=== PATIENT | male | born 1960 | race Caucasian/White ===

== ENCOUNTER 2017-03-30 18:28 | Emergency (ER) | payer OTHER ==
[~2017-03-30] VITALS: Ht 177.8 cm; Wt 78.7 kg
[~2017-03-30 18:28] MED LIST: GABA300C10 PO; LEVO100T PO; METF500T4 PO; ROPI0.25 PO; TAMS-11 PO; TRAM-47 PO; TRAN4TAB11 PO
[2017-03-30] MEDS ORDERED: MORPHINE SULFATE 4 MG/ML, 1ML ONE (19:14)
[2017-03-30] MEDS ORDERED: MORPHINE SULFATE 4 MG/ML, 1ML IV PRN (19:30)
[2017-03-30] MEDS ORDERED: CEFTAROLINE 600 MG in SODIUM CHLORIDE 0.9% 100 ML IV ONE (19:30)
[2017-03-30 21:00] VITALS: BP 188/104
== END 2017-03-30 21:39 | disposition home or self-care (01) ==
LOC: ED 19:23
DX: J34.0 Abscess, furuncle and carbuncle of nose (principal); I10 Essential (primary) hypertension; E11.9 Type 2 diabetes mellitus without complications
CPT/HCPCS: 96365; 96366; 96375; 99285; J0712

== ENCOUNTER 2017-06-05 09:25 | Emergency (ER) | payer OTHER ==
[~2017-06-05] VITALS: Ht 177.8 cm; Wt 77.6 kg
[2017-06-05 09:32] VITALS: BP 161/94
== END 2017-06-05 11:36 | disposition home or self-care (01) ==
LOC: ED 11:30
DX: S16.1XXA Strain of muscle, fascia and tendon at neck level, initial encounter (principal); G89.11 Acute pain due to trauma; M54.6 Pain in thoracic spine; E03.9 Hypothyroidism, unspecified; E11.9 Type 2 diabetes mellitus without complications; E78.5 Hyperlipidemia, unspecified; I10 Essential (primary) hypertension; V89.2XXA Person injured in unspecified motor-vehicle accident, traffic, initial encounter; Y93.89 Activity, other specified; Y99.8 Other external cause status; Y92.488 Other paved roadways as the place of occurrence of the external cause
CPT/HCPCS: 72072; 72125; 99284

== ENCOUNTER 2018-04-12 18:53 | Emergency (ER) | payer OTHER ==
[~2018-04-12] VITALS: Ht 175.3 cm; Wt 77.5 kg
[~2018-04-12 18:53] MED LIST changes: +METF500T17 PO; -METF500T4 PO
[2018-04-12 18:56] VITALS: BP 186/103
[2018-04-12] MEDS ORDERED: VENL25TA PO (19:02)
[2018-04-12] MEDS ORDERED: AMLO10TA6 PO (19:02)
== END 2018-04-12 19:29 | disposition home or self-care (01) ==
LOC: ED 19:20
DX: S13.9XXA Sprain of joints and ligaments of unspecified parts of neck, initial encounter (principal); E11.9 Type 2 diabetes mellitus without complications; I10 Essential (primary) hypertension; E78.5 Hyperlipidemia, unspecified; E03.9 Hypothyroidism, unspecified; V49.49XA Driver injured in collision with other motor vehicles in traffic accident, initial encounter; Y93.89 Activity, other specified; Y92.89 Other specified places as the place of occurrence of the external cause; Y99.8 Other external cause status
CPT/HCPCS: 93005; 99283

== ENCOUNTER → 2018-05-18 | Outpatient (CLI) | payer OTHER ==
[~2018-05-18] MED LIST changes: +AMLO10TA6 PO; +VENL25TA PO
[2018-05-18 10:32] LABS: MEAN CORPUSCULAR HEMOGLOBIN 27.8 pg (27.5-34.5); MEAN CORPUSCULAR HGB CONC 33.3 g/dL (33.2-36.2); MEAN CORPUSCULAR VOLUME 83.6 fL (81-97); MEAN PLATELET VOLUME 6.3 fL (7.4-10.4); PLATELET COUNT 336 x10^3/uL (130-400); RED BLOOD COUNT 4.87 x10^6/uL (4.38-5.82)
[2018-05-18 10:33] LABS: ALANINE AMINOTRANSFERASE 32 U/L (12-78); ALBUMIN 4.1 g/dL (3.4-5.0); ANION GAP 9 mmol/L (5-15); CALCIUM 10.2 mg/dL (8.5-10.1); CHLORIDE 102 mmol/L (98-107); CREATININE 1.13 mg/dL (0.7-1.3)
[2018-05-18 10:44] LABS: ALKALINE PHOSPHATASE 105 U/L (45-117); BILIRUBIN,TOTAL 0.3 mg/dL (0.2-1.0); CHOL/HDL RATIO 5.8; CHOLESTEROL, TOTAL 228 mg/dL (140-239); HDL CHOL % 17 % (26-37); HDL CHOLESTEROL (DIRECT) 39 mg/dL (40-60); TOTAL PROTEIN 8.4 g/dL (6.4-8.2); TRIGLYCERIDES 425 mg/dL (50-200)
[2018-05-18 10:48] LABS: HEMOGLOBIN A1C 7.8 % (4.2-6.3)
== END | disposition home or self-care (01) ==
LOC: LAB 09:58
PROVIDERS: ATTEND Internal Medicine
DX: Z12.5 Encounter for screening for malignant neoplasm of prostate (principal); Z13.89 Encounter for screening for other disorder; E11.69 Type 2 diabetes mellitus with other specified complication; E03.9 Hypothyroidism, unspecified; E78.2 Mixed hyperlipidemia; G47.30 Sleep apnea, unspecified; G60.9 Hereditary and idiopathic neuropathy, unspecified; N13.9 Obstructive and reflux uropathy, unspecified; R80.0 Isolated proteinuria
CPT/HCPCS: 36415; 80053; 80061; 82043; 82570; 83036; 84153; 84402; 84403; 84443; 85027

== ENCOUNTER → 2018-11-23 | Outpatient (CLI) | payer OTHER ==
[~2018-11-23] MED LIST changes: -AMLO10TA6 PO; +AMLO10TA8 PO
[2018-11-23 08:58] LABS: MEAN CORPUSCULAR HEMOGLOBIN 26.1 pg (27.5-34.5); MEAN CORPUSCULAR HGB CONC 31.3 g/dL (33.2-36.2); MEAN CORPUSCULAR VOLUME 83.4 fL (81-97); PLATELET COUNT 350 x10^3/uL (130-400); RED BLOOD COUNT 4.91 x10^6/uL (4.38-5.82); RED CELL DISTRIBUTION WIDTH 14.9 % (9.4-14.8)
[2018-11-23 09:10] LABS: ALANINE AMINOTRANSFERASE 30 U/L (12-78); ANION GAP 6 mmol/L (5-15); CALCIUM 10.8 mg/dL (8.5-10.1); CHLORIDE 108 mmol/L (98-107); CREATININE 1.23 mg/dL (0.7-1.3)
[2018-11-23 09:21] LABS: ALKALINE PHOSPHATASE 105 U/L (45-117); BILIRUBIN,TOTAL 0.3 mg/dL (0.2-1.0); CHOL/HDL RATIO 5.3; CHOLESTEROL, TOTAL 207 mg/dL (140-239); HDL CHOL % 19 % (26-37); HDL CHOLESTEROL (DIRECT) 39 mg/dL (40-60); LDL CHOLESTEROL,CALCULATED 109 mg/dL (54-169); LDL/HDL RATIO 2.8 (0.5-3.0); TOTAL PROTEIN 7.7 g/dL (6.4-8.2); TRIGLYCERIDES 296 mg/dL (50-200); VLDL CHOLESTEROL 59 mg/dL (0-25)
== END | disposition home or self-care (01) ==
LOC: LAB 08:41
PROVIDERS: ATTEND Internal Medicine
DX: I10 Essential (primary) hypertension (principal); E03.9 Hypothyroidism, unspecified; E11.69 Type 2 diabetes mellitus with other specified complication; E11.9 Type 2 diabetes mellitus without complications; E29.1 Testicular hypofunction; E78.2 Mixed hyperlipidemia; E83.52 Hypercalcemia; G60.9 Hereditary and idiopathic neuropathy, unspecified
CPT/HCPCS: 36415; 80053; 80061; 82330; 83036; 83970; 84100; 84403; 84443; 85027

== ENCOUNTER → 2019-07-28 | Outpatient (CLI) | payer OTHER ==
[2019-07-28 09:30] LABS: MEAN CORPUSCULAR HEMOGLOBIN 25.6 pg (27.5-34.5); MEAN CORPUSCULAR HGB CONC 32.2 g/dL (33.2-36.2); MEAN CORPUSCULAR VOLUME 79.5 fL (81-97); MEAN PLATELET VOLUME 6.7 fL (7.4-10.4); PLATELET COUNT 330 x10^3/uL (130-400); RED CELL DISTRIBUTION WIDTH 15.5 % (9.4-14.8)
[2019-07-28 09:38] LABS: RED BLOOD COUNT 4.86 x10^6/uL (4.38-5.82)
[2019-07-28 09:42] LABS: ALBUMIN 3.5 g/dL (3.4-5.0); ANION GAP 6 mmol/L (5-15); CALCIUM 10.6 mg/dL (8.5-10.1); CHLORIDE 107 mmol/L (98-107); CHOLESTEROL, TOTAL 151 mg/dL (140-239); TRIGLYCERIDES 261 mg/dL (50-200); VLDL CHOLESTEROL 52 mg/dL (0-25)
[2019-07-28 09:49] LABS: ABSOLUTE RETICS # 0.069 x10^6/uL (0.5-1.5); RETICULOCYTE COUNT % 1.42 % (0.5-1.5)
[2019-07-28 10:08] LABS: % IRON SATURATION 7 % (20-55); ALANINE AMINOTRANSFERASE 20 U/L (12-78); ALKALINE PHOSPHATASE 124 U/L (45-117); BILIRUBIN,TOTAL 0.2 mg/dL (0.2-1.0); CHOL/HDL RATIO 4.4; CREATININE 1.26 mg/dL (0.7-1.3); HDL CHOL % 23 % (26-37); HDL CHOLESTEROL (DIRECT) 34 mg/dL (40-60); IRON LEVEL 25 mcg/dL (65-175); LDL CHOLESTEROL,CALCULATED 65 mg/dL (54-169); LDL/HDL RATIO 1.9 (0.5-3.0); TOTAL IRON BINDING CAPACITY 360 mcg/dL (250-450)
== END | disposition home or self-care (01) ==
LOC: LAB 09:14
PROVIDERS: ATTEND Internal Medicine
DX: D64.9 Anemia, unspecified (principal); E11.69 Type 2 diabetes mellitus with other specified complication; E03.9 Hypothyroidism, unspecified; E29.1 Testicular hypofunction; G60.9 Hereditary and idiopathic neuropathy, unspecified; I10 Essential (primary) hypertension; N13.9 Obstructive and reflux uropathy, unspecified
CPT/HCPCS: 80053; 80061; 82306; 82607; 82746; 83036; 83540; 83550; 83970; 84100; 84403; 84443; 85027; 85045

== ENCOUNTER 2019-12-09 16:55 | Inpatient (IN) | payer OTHER ==
[~2019-12-09] VITALS: Ht 175.3 cm; Wt 75.4 kg
[2019-12-09] MEDS ORDERED: VANCOMYCIN PER PHARMACY MC ONE (17:30)
[2019-12-09] MEDS ORDERED: SODIUM CHLORIDE FLUSH 10ML SYR IVF ONE (17:30)
[2019-12-09 17:57] LABS: BASOPHILS # (AUTO) 0.06 x10^3/uL (0-0.1); BASOPHILS % (AUTO) 1 % (0-1); EOSINOPHILS # (AUTO) 0.75 x10^3/uL (0-0.4); EOSINOPHILS % (AUTO) 10 % (1-7); LYMPHOCYTES # (AUTO) 1.77 x10^3/uL (1-3.4); LYMPHOCYTES % (AUTO) 24 % (22-44); MD NO; MEAN CORPUSCULAR HEMOGLOBIN 25.1 pg (27.5-34.5); MEAN CORPUSCULAR HGB CONC 32.6 g/dL (33.2-36.2); MEAN PLATELET VOLUME 6.5 fL (7.4-10.4); MONOCYTES # (AUTO) 0.49 x10^3/uL (0.2-0.8); MONOCYTES % (AUTO) 7 % (2-9); NEUTROPHILS # (AUTO) 4.44 x10^3/uL (1.8-6.8); NEUTROPHILS % (AUTO) 59 % (42-75); PLATELET COUNT 432 x10^3/uL (130-400); RED BLOOD COUNT 4.25 x10^6/uL (4.38-5.82); RED CELL DISTRIBUTION WIDTH 15.7 % (9.4-14.8)
[2019-12-09] MEDS ORDERED: VANCOMYCIN 1,500 MG in SODIUM CHLORIDE 0.9% 250 ML IV ONE (18:00)
[2019-12-09 18:06] LABS: ALBUMIN 3.1 g/dL (3.4-5.0); ANION GAP 8 mmol/L (5-15); CALCIUM 11.6 mg/dL (8.5-10.1); CHLORIDE 105 mmol/L (98-107); CREATININE 1.31 mg/dL (0.7-1.3)
[2019-12-09] MEDS ORDERED: CLIN300C8 PO (18:25)
[2019-12-09] MEDS ORDERED: VENL75TA PO (18:25)
[2019-12-09] MEDS ORDERED: LEVO175T5 PO (18:25)
[2019-12-09] MEDS ORDERED: TAMS-11 PO (18:25)
[2019-12-09] MEDS ORDERED: ZALE10CA PO (18:25)
[2019-12-09] MEDS ORDERED: GABA600T7 PO (18:25)
[2019-12-09] MEDS ORDERED: BUPR150T13 PO (18:25)
[2019-12-09] MEDS ORDERED: METF500T17 PO (18:25)
--- NOTE | 2019-12-09 18:32 | NUR ---
ABX STARTED AFTER BLOOD CULTURES DRAWN
--- NOTE | 2019-12-09 19:10 | NUR ---
BEDSIDE REPORT FROM FELI RN, PT CARE TRANSFERRED AT THIS TIME. PT RESTING IN GURNEY, NAD, RESP WNL, P/W/D, FAMILY AT BS, CALL LIGHT ON LAP, DENIES ADDITIONAL NEEDS AT THIS TIME, WCTM, WAITING FOR ADMIT BED
--- NOTE | 2019-12-09 19:10 | NUR ---
Note kemone in EDM - 12/09/19 at 1910 by LEISA BEDSIDE REPORT FROM FELI BECERRA, PT CARE TRANSFERRED AT THIS TIME. [place], NAD, RESP WNL, P/W/D, FAMILY AT , CALL LIGHT ON LAP, DENIES ADDITIONAL NEEDS AT THIS TIME, WCTM, WAITING FOR ADDITIONAL TESTING RESULTS.
--- NOTE | 2019-12-09 19:27 | NUR ---
Lab at BS, pt at BS, pt NAD, RESP WNL, VSS, P/W/D, denies additional needs at this time, call light on lap, FCS no SOB, WCTM.
[2019-12-09] MEDS ORDERED: SODIUM CHLORIDE FLUSH 10ML SYR IVF PRN (19:30)
[2019-12-09] MEDS ORDERED: VANCOMYCIN PER PHARMACY MC PRN (19:30)
[2019-12-09] MEDS ORDERED: POLYETHYLENE GLYCOL 17 GM PACKET PO PRN (20:00)
[2019-12-09] MEDS ORDERED: BISACODYL 10 MG SUPP PR PRN (20:00)
[2019-12-09] MEDS ORDERED: ONDANSETRON 2MG/ML, 2ML IVPush PRN (20:00)
[2019-12-09] MEDS ORDERED: SODIUM CHLORIDE 0.9% 1,000 ML IV SCH (20:00)
[2019-12-09] MEDS ORDERED: ZOLPIDEM 5MG TABLET PO PRN (21:00)
[2019-12-09] MEDS: INSULIN LISPRO 100 UNITS/ML, PEN SQ-INSULIN SCH (21:00)
[2019-12-09] MEDS ORDERED: PHARMACOKINETIC MONITORING MC PRN (21:00)
[2019-12-09] MEDS ORDERED: PHARMACOKINETIC CONSULTATION MC ONE (21:00)
[2019-12-09] MEDS: HEPARIN 5,000 UNITS/ML, 1ML SQ SCH (21:23)
[2019-12-09 21:30] VITALS: BP 170/88
[2019-12-10 02:07] VITALS: BP 167/90
[2019-12-10] MEDS: LEVOTHYROXINE 175 MCG TABLET PO SCH (05:22)
[2019-12-10] MEDS: HEPARIN 5,000 UNITS/ML, 1ML SQ SCH ×3 (05:22→20:05)
[2019-12-10 05:30] LABS: ALBUMIN 2.8 g/dL (3.4-5.0); ANION GAP 9 mmol/L (5-15); CALCIUM 11.2 mg/dL (8.5-10.1); CHLORIDE 108 mmol/L (98-107)
[2019-12-10 05:43] LABS: ALANINE AMINOTRANSFERASE 14 U/L (12-78); ALKALINE PHOSPHATASE 87 U/L (45-117); BILIRUBIN,TOTAL 0.3 mg/dL (0.2-1.0); CREATININE 1.22 mg/dL (0.7-1.3); TOTAL PROTEIN 7.6 g/dL (6.4-8.2)
[2019-12-10 06:46] VITALS: BP 159/87
[2019-12-10] MEDS: INSULIN LISPRO 100 UNITS/ML, PEN SQ-INSULIN SCH ×4 (07:00→20:12)
[2019-12-10] MEDS ORDERED: GADOTERATE 7.5 MMOL/15 ML SYR ONE (09:27)
[2019-12-10] MEDS: TAMSULOSIN 0.4 MG CAP.ER.24H PO SCH (09:39)
[2019-12-10] MEDS: AMLODIPINE 10 MG TAB PO SCH (09:39)
[2019-12-10] MEDS: GABAPENTIN 300 MG CAPSULE PO SCH (09:39)
[2019-12-10] MEDS: SENNA/DOCUSATE TABLET PO SCH (09:39)
[2019-12-10] MEDS: VENLAFAXINE 75MG TABLET PO SCH (09:39)
[2019-12-10] MEDS ORDERED: VANCOMYCIN 1,400 MG in SODIUM CHLORIDE 0.9% 250 ML IV SCH (12:00)
[2019-12-10 12:04] VITALS: BP 175/90
[2019-12-10 16:06] VITALS: BP 176/97
[2019-12-10] MEDS: hydrALAzine 20 MG/ML, 1ML IVPush PRN (16:10)
[2019-12-10 16:50] VITALS: BP 158/85
[2019-12-10] MEDS: ACETAMINOPHEN 325 MG TABLET PO PRN (20:05)
[2019-12-10 20:13] VITALS: BP 165/88
[2019-12-10] MEDS ORDERED: LORazepam 2 MG/ML, 1ML IVPush ONE (23:00)
[2019-12-11 01:39] VITALS: BP 145/79
[2019-12-11] MEDS: HEPARIN 5,000 UNITS/ML, 1ML SQ SCH ×3 (03:17→12:23)
[2019-12-11] MEDS: LEVOTHYROXINE 175 MCG TABLET PO SCH (05:41)
[2019-12-11 07:09] VITALS: BP 165/104
[2019-12-11] MEDS: INSULIN LISPRO 100 UNITS/ML, PEN SQ-INSULIN SCH ×4 (07:44→20:22)
[2019-12-11] MEDS: hydrALAzine 20 MG/ML, 1ML IVPush PRN (07:48)
[2019-12-11 08:30] VITALS: BP 132/73
[2019-12-11] MEDS: AMLODIPINE 10 MG TAB PO SCH (08:57)
[2019-12-11] MEDS: TAMSULOSIN 0.4 MG CAP.ER.24H PO SCH ×2 (08:58→12:25)
[2019-12-11] MEDS: VENLAFAXINE 75MG TABLET PO SCH ×3 (08:58→12:33)
[2019-12-11] MEDS: GABAPENTIN 300 MG CAPSULE PO SCH ×2 (08:58→12:30)
[2019-12-11] MEDS: SENNA/DOCUSATE TABLET PO SCH (08:58)
[2019-12-11] MEDS ORDERED: BUPIVACAINE/PF 0.5% ONE (10:06)
[2019-12-11] MEDS ORDERED: BACITRACIN 50,000 UNIT ONE (10:06)
[2019-12-11] MEDS ORDERED: CHLORHEXIDINE 15 ML UDC ONE (10:24)
[2019-12-11] MEDS ORDERED: FENTANYL PF 100 MCG/2ML ONE (10:41)
[2019-12-11] MEDS ORDERED: BUPIVACAINE/PF 0.25% INFIL ONE (10:56)
[2019-12-11] MEDS ORDERED: PROPOFOL 10 MG/ML, 20ML ONE (11:00)
[2019-12-11] MEDS ORDERED: FENTANYL PF 100 MCG/2ML IV PRN (11:00)
[2019-12-11] MEDS ORDERED: CEFAZOLIN 1,000 MG ONE (11:00)
[2019-12-11] MEDS ORDERED: hydrALAzine 20 MG/ML, 1ML IV PRN (11:00)
[2019-12-11] MEDS ORDERED: ONDANSETRON 2MG/ML, 2ML ONE (11:00)
[2019-12-11] MEDS ORDERED: DEXAMETHASONE 4 MG/ML, 1ML ONE (11:00)
[2019-12-11] MEDS ORDERED: LABETALOL 5MG/ML, 20ML IV PRN (11:00)
[2019-12-11] MEDS ORDERED: ACETAMINOPHEN 325 MG TABLET PO PRN (11:00)
[2019-12-11] MEDS ORDERED: MIDAZOLAM 1 MG/ML, 2ML IV PRN (11:00)
[2019-12-11] MEDS ORDERED: OXYcodone 5 MG/5 ML ORAL.SOL UDC PO PRN (11:00)
[2019-12-11] MEDS ORDERED: PROMETHAZINE 25 MG/ML, 1ML IVPush PRN (11:00)
[2019-12-11] MEDS ORDERED: LIDOCAINE-MPF 2% ,5ML ONE (11:01)
[2019-12-11 12:04] VITALS: BP 153/86
[2019-12-11] MEDS: ACETAMINOPHEN 325 MG TABLET PO PRN ×2 (12:24→20:22)
[2019-12-11 13:18] VITALS: BP 164/85
[2019-12-11 19:01] VITALS: BP 151/79
[2019-12-11] MEDS: CEFAZOLIN PMX 1GM/50ML 50 ML IVPB SCH (20:12)
[2019-12-12 00:20] VITALS: BP 147/79
[2019-12-12] MEDS: HEPARIN 5,000 UNITS/ML, 1ML SQ SCH ×3 (03:33→21:10)
[2019-12-12] MEDS: CEFAZOLIN PMX 1GM/50ML 50 ML IVPB SCH ×2 (03:33→13:32)
[2019-12-12 05:23] LABS: BASOPHILS # (AUTO) 0.04 x10^3/uL (0-0.1); BASOPHILS % (AUTO) 0 % (0-1); EOSINOPHILS # (AUTO) 0.07 x10^3/uL (0-0.4); EOSINOPHILS % (AUTO) 1 % (1-7); LYMPHOCYTES # (AUTO) 1.79 x10^3/uL (1-3.4); LYMPHOCYTES % (AUTO) 21 % (22-44); MD NO; MEAN CORPUSCULAR HEMOGLOBIN 24.1 pg (27.5-34.5); MEAN CORPUSCULAR HGB CONC 31.5 g/dL (33.2-36.2); MEAN CORPUSCULAR VOLUME 76.7 fL (81-97); MEAN PLATELET VOLUME 6.5 fL (7.4-10.4); MONOCYTES # (AUTO) 0.52 x10^3/uL (0.2-0.8); MONOCYTES % (AUTO) 6 % (2-9); NEUTROPHILS # (AUTO) 6.23 x10^3/uL (1.8-6.8); NEUTROPHILS % (AUTO) 72 % (42-75); PLATELET COUNT 428 x10^3/uL (130-400); RED BLOOD COUNT 4.45 x10^6/uL (4.38-5.82); RED CELL DISTRIBUTION WIDTH 15.4 % (9.4-14.8)
[2019-12-12 05:30] LABS: ANION GAP 8 mmol/L (5-15); CALCIUM 11.2 mg/dL (8.5-10.1); CHLORIDE 108 mmol/L (98-107); CREATININE 1.19 mg/dL (0.7-1.3)
[2019-12-12] MEDS: LEVOTHYROXINE 175 MCG TABLET PO SCH (06:06)
[2019-12-12 07:36] VITALS: BP 165/85
[2019-12-12] MEDS: INSULIN LISPRO 100 UNITS/ML, PEN SQ-INSULIN SCH ×4 (07:52→21:00)
[2019-12-12] MEDS: AMLODIPINE 10 MG TAB PO SCH (09:05)
[2019-12-12] MEDS: VENLAFAXINE 75MG TABLET PO SCH (09:05)
[2019-12-12] MEDS: GABAPENTIN 300 MG CAPSULE PO SCH (09:05)
[2019-12-12] MEDS: TAMSULOSIN 0.4 MG CAP.ER.24H PO SCH (09:05)
[2019-12-12] MEDS: SENNA/DOCUSATE TABLET PO SCH (09:06)
[2019-12-12] MEDS ORDERED: GADOTERATE 10 MMOL/20 ML SYR ONE (09:27)
[2019-12-12 14:53] VITALS: BP 136/77
[2019-12-12] MEDS ORDERED: VANCOMYCIN PER PHARMACY MC PRN (18:00)
[2019-12-12] MEDS: PIPERACILLIN/TAZO/PMX 3.375GM 50 ML IV SCH (18:23)
[2019-12-12] MEDS ORDERED: PHARMACOKINETIC CONSULTATION MC ONE (18:30)
[2019-12-12] MEDS ORDERED: PHARMACOKINETIC MONITORING MC PRN (18:30)
[2019-12-12 18:47] VITALS: BP 145/77
[2019-12-12] MEDS: VANCOMYCIN 1,500 MG in SODIUM CHLORIDE 0.9% 250 ML IV SCH (19:55)
[2019-12-12] MEDS: LACTOBACILLUS 1GM/ PACKET PO SCH ×2 (21:00→21:10)
[2019-12-12] MEDS: ACETAMINOPHEN 325 MG TABLET PO PRN (21:10)
[2019-12-13 00:28] VITALS: BP 170/89
[2019-12-13] MEDS: PIPERACILLIN/TAZO/PMX 3.375GM 50 ML IV SCH ×3 (01:58→17:15)
[2019-12-13 03:00] VITALS: BP 156/86
[2019-12-13] MEDS: HEPARIN 5,000 UNITS/ML, 1ML SQ SCH ×3 (03:53→20:31)
[2019-12-13] MEDS: LEVOTHYROXINE 175 MCG TABLET PO SCH (05:50)
[2019-12-13 06:21] LABS: BASOPHILS # (AUTO) 0.07 x10^3/uL (0-0.1); BASOPHILS % (AUTO) 1 % (0-1); EOSINOPHILS # (AUTO) 0.49 x10^3/uL (0-0.4); EOSINOPHILS % (AUTO) 6 % (1-7); LYMPHOCYTES % (AUTO) 33 % (22-44); MD NO; MEAN CORPUSCULAR HEMOGLOBIN 24.4 pg (27.5-34.5); MEAN CORPUSCULAR HGB CONC 31.6 g/dL (33.2-36.2); MEAN CORPUSCULAR VOLUME 77.2 fL (81-97); MEAN PLATELET VOLUME 6.6 fL (7.4-10.4); MONOCYTES # (AUTO) 0.53 x10^3/uL (0.2-0.8); MONOCYTES % (AUTO) 6 % (2-9); NEUTROPHILS # (AUTO) 4.73 x10^3/uL (1.8-6.8); NEUTROPHILS % (AUTO) 54 % (42-75); PLATELET COUNT 506 x10^3/uL (130-400); RED BLOOD COUNT 4.98 x10^6/uL (4.38-5.82); RED CELL DISTRIBUTION WIDTH 15.5 % (9.4-14.8)
[2019-12-13 06:35] LABS: ANION GAP 9 mmol/L (5-15); CALCIUM 12.2 mg/dL (8.5-10.1); CHLORIDE 107 mmol/L (98-107); CREATININE 1.22 mg/dL (0.7-1.3)
[2019-12-13 06:48] VITALS: BP 171/84
[2019-12-13] MEDS: INSULIN LISPRO 100 UNITS/ML, PEN SQ-INSULIN SCH ×4 (07:46→20:32)
[2019-12-13] MEDS: VANCOMYCIN 1,500 MG in SODIUM CHLORIDE 0.9% 250 ML IV SCH (07:53)
[2019-12-13] MEDS: GABAPENTIN 300 MG CAPSULE PO SCH (07:53)
[2019-12-13] MEDS: TAMSULOSIN 0.4 MG CAP.ER.24H PO SCH (07:53)
[2019-12-13] MEDS: VENLAFAXINE 75MG TABLET PO SCH (07:53)
[2019-12-13] MEDS: LACTOBACILLUS 1GM/ PACKET PO SCH ×3 (07:53→20:31)
[2019-12-13] MEDS: AMLODIPINE 10 MG TAB PO SCH (07:53)
[2019-12-13] MEDS: SENNA/DOCUSATE TABLET PO SCH (07:54)
[2019-12-13 13:46] VITALS: BP 141/74
[2019-12-13 16:00] VITALS: BP 124/77
[2019-12-13 18:30] VITALS: BP 144/84
[2019-12-13] MEDS: DAPTOMYCIN 500 MG in SODIUM CHLORIDE 0.9% 100 ML IVPB SCH (18:44)
[2019-12-14 00:09] VITALS: BP 168/77
[2019-12-14] MEDS: HEPARIN 5,000 UNITS/ML, 1ML SQ SCH ×3 (05:11→21:07)
[2019-12-14] MEDS: LEVOTHYROXINE 175 MCG TABLET PO SCH (05:11)
[2019-12-14 06:41] LABS: HCT (SEDRATE) 36.3 % (39.2-51.8)
[2019-12-14 06:43] LABS: C-REACTIVE PROTEIN, QUANT 0.93 mg/dL (0.02-0.49)
[2019-12-14] MEDS: INSULIN LISPRO 100 UNITS/ML, PEN SQ-INSULIN SCH ×4 (07:00→21:00)
[2019-12-14 07:48] VITALS: BP 151/77
[2019-12-14] MEDS: LACTOBACILLUS 1GM/ PACKET PO SCH ×3 (08:54→21:07)
[2019-12-14] MEDS: GABAPENTIN 300 MG CAPSULE PO SCH (08:55)
[2019-12-14] MEDS: TAMSULOSIN 0.4 MG CAP.ER.24H PO SCH (08:55)
[2019-12-14] MEDS: AMLODIPINE 10 MG TAB PO SCH (08:55)
[2019-12-14] MEDS: VENLAFAXINE 75MG TABLET PO SCH (08:55)
[2019-12-14] MEDS: SENNA/DOCUSATE TABLET PO SCH (09:00)
[2019-12-14 13:14] VITALS: BP 144/84
[2019-12-14] MEDS: DAPTOMYCIN 500 MG in SODIUM CHLORIDE 0.9% 100 ML IVPB SCH (18:16)
[2019-12-14 18:32] VITALS: BP 172/100
[2019-12-15 02:54] VITALS: BP 149/85
[2019-12-15] MEDS: HEPARIN 5,000 UNITS/ML, 1ML SQ SCH ×2 (05:25→12:30)
[2019-12-15] MEDS: LEVOTHYROXINE 175 MCG TABLET PO SCH (05:25)
[2019-12-15] MEDS: ACETAMINOPHEN 325 MG TABLET PO PRN (05:39)
[2019-12-15] MEDS: INSULIN LISPRO 100 UNITS/ML, PEN SQ-INSULIN SCH ×2 (07:00→11:59)
[2019-12-15 07:11] VITALS: BP 149/90
[2019-12-15] MEDS: SENNA/DOCUSATE TABLET PO SCH (09:00)
[2019-12-15] MEDS: VENLAFAXINE 75MG TABLET PO SCH (09:37)
[2019-12-15] MEDS: TAMSULOSIN 0.4 MG CAP.ER.24H PO SCH (09:37)
[2019-12-15] MEDS: LACTOBACILLUS 1GM/ PACKET PO SCH (09:37)
[2019-12-15] MEDS: AMLODIPINE 10 MG TAB PO SCH (09:37)
[2019-12-15] MEDS: GABAPENTIN 300 MG CAPSULE PO SCH (09:37)
[2019-12-15] MEDS: DAPTOMYCIN 500 MG in SODIUM CHLORIDE 0.9% 100 ML IVPB SCH (12:27)
[2019-12-15] MEDS ORDERED: DAPT500V3 IV (12:59)
[2019-12-15 13:00] VITALS: BP 152/87
== END 2019-12-15 13:50 | disposition home or self-care (01) | DRG 638 ==
LOC: ED 17:39 → EDIP 19:26 → 3N 19:40
PROVIDERS: ADMIT Hospitalist; ATTEND Internal Medicine Infectious Disease
PROC: 0H9NXZZ Drainage of Left Foot Skin, External Approach (ICD-10-PCS; principal; 2019-12-11 11:00)
PROC: 02HV33Z Insertion of Infusion Device into Superior Vena Cava, Percutaneous Approach (ICD-10-PCS; 2019-12-14)
PROC: B548ZZA Ultrasonography of Superior Vena Cava, Guidance (ICD-10-PCS; 2019-12-14)
DX: E11.621 Type 2 diabetes mellitus with foot ulcer (principal); M86.8X7 Other osteomyelitis, ankle and foot; L03.116 Cellulitis of left lower limb; E11.69 Type 2 diabetes mellitus with other specified complication; L97.529 Non-pressure chronic ulcer of other part of left foot with unspecified severity; E03.9 Hypothyroidism, unspecified; D63.1 Anemia in chronic kidney disease; E11.42 Type 2 diabetes mellitus with diabetic polyneuropathy; G47.33 Obstructive sleep apnea (adult) (pediatric); E83.52 Hypercalcemia; N25.81 Secondary hyperparathyroidism of renal origin; B95.62 Methicillin resistant Staphylococcus aureus infection as the cause of diseases classified elsewhere; M20.40 Other hammer toe(s) (acquired), unspecified foot; N40.0 Benign prostatic hyperplasia without lower urinary tract symptoms; Z87.09 Personal history of other diseases of the respiratory system; Z79.899 Other long term (current) drug therapy
CPT/HCPCS: 36415; 73630; 96374; 96375; 99285; J3490; S0020; 36573; 80048; 80053; 82040; 82306; 82550; 82728; 82962; 83036; 83605; 83970; 84100; 84439; 84443; 85025; 85651; 86140; 87040; 87070; 87075; 87081; 87186; 87205; 93306; 93922; 94660; G0378; J0690; J0878; J1100; J1644; J2405; J2543; J2704; J3010; J3370; A9575; C1751; J0360; J1815; J2060; J7030; J7050

== ENCOUNTER 2019-12-16 10:08 | Outpatient (CLI) | payer OTHER ==
[~2019-12-16 10:08] MED LIST changes: +BUPR150T13 PO; +CLIN300C8 PO; +DAPT500V3 IV; +GABA600T7 PO; +LEVO175T5 PO; +VENL75TA PO; +ZALE10CA PO
[2019-12-26] MEDS ORDERED: FENO145T32 PO (17:17)
== END 2019-12-16 23:59 | disposition home or self-care (01) ==
LOC: WOUND 10:08
PROVIDERS: ATTEND Family Medicine
DX: T81.89XA Other complications of procedures, not elsewhere classified, initial encounter (principal); E11.621 Type 2 diabetes mellitus with foot ulcer; L97.521 Non-pressure chronic ulcer of other part of left foot limited to breakdown of skin; L97.511 Non-pressure chronic ulcer of other part of right foot limited to breakdown of skin; E11.42 Type 2 diabetes mellitus with diabetic polyneuropathy; D50.8 Other iron deficiency anemias; E11.69 Type 2 diabetes mellitus with other specified complication; M86.072 Acute hematogenous osteomyelitis, left ankle and foot; M86.271 Subacute osteomyelitis, right ankle and foot; F32.9 Major depressive disorder, single episode, unspecified; L84 Corns and callosities; D63.8 Anemia in other chronic diseases classified elsewhere; E03.9 Hypothyroidism, unspecified; G47.33 Obstructive sleep apnea (adult) (pediatric); N25.81 Secondary hyperparathyroidism of renal origin; E83.52 Hypercalcemia; Z79.899 Other long term (current) drug therapy; Y83.8 Other surgical procedures as the cause of abnormal reaction of the patient, or of later complication, without mention of misadventure at the time of the procedure; Y92.89 Other specified places as the place of occurrence of the external cause
CPT/HCPCS: 97597; 99215

== ENCOUNTER → 2019-12-20 | Outpatient (CLI) | payer OTHER | END | disposition home or self-care (01) | LOC: WOUND 14:41 | PROVIDERS: ATTEND Nurse Practitioner Family | DX: T81.89XD Other complications of procedures, not elsewhere classified, subsequent encounter (principal); E11.621 Type 2 diabetes mellitus with foot ulcer; L97.521 Non-pressure chronic ulcer of other part of left foot limited to breakdown of skin; E11.42 Type 2 diabetes mellitus with diabetic polyneuropathy; D50.8 Other iron deficiency anemias; E11.69 Type 2 diabetes mellitus with other specified complication; M86.072 Acute hematogenous osteomyelitis, left ankle and foot; M86.271 Subacute osteomyelitis, right ankle and foot; F32.9 Major depressive disorder, single episode, unspecified; L84 Corns and callosities; D63.8 Anemia in other chronic diseases classified elsewhere; E03.9 Hypothyroidism, unspecified; G47.33 Obstructive sleep apnea (adult) (pediatric); N25.81 Secondary hyperparathyroidism of renal origin; E83.52 Hypercalcemia; Z79.899 Other long term (current) drug therapy; Y83.8 Other surgical procedures as the cause of abnormal reaction of the patient, or of later complication, without mention of misadventure at the time of the procedure | CPT/HCPCS: 97597 ==

== ENCOUNTER → 2019-12-27 | Outpatient (CLI) | payer OTHER ==
[~2019-12-27] MED LIST changes: +FENO145T32 PO
== END | disposition home or self-care (01) ==
LOC: WOUND 08:27
PROVIDERS: ATTEND Nurse Practitioner Family
DX: T81.89XD Other complications of procedures, not elsewhere classified, subsequent encounter (principal); E11.621 Type 2 diabetes mellitus with foot ulcer; L97.521 Non-pressure chronic ulcer of other part of left foot limited to breakdown of skin; E11.42 Type 2 diabetes mellitus with diabetic polyneuropathy; D50.8 Other iron deficiency anemias; E11.69 Type 2 diabetes mellitus with other specified complication; M86.072 Acute hematogenous osteomyelitis, left ankle and foot; M86.271 Subacute osteomyelitis, right ankle and foot; F32.9 Major depressive disorder, single episode, unspecified; L84 Corns and callosities; D63.8 Anemia in other chronic diseases classified elsewhere; E03.9 Hypothyroidism, unspecified; G47.33 Obstructive sleep apnea (adult) (pediatric); N25.81 Secondary hyperparathyroidism of renal origin; E83.52 Hypercalcemia; Z79.899 Other long term (current) drug therapy; Y83.8 Other surgical procedures as the cause of abnormal reaction of the patient, or of later complication, without mention of misadventure at the time of the procedure
CPT/HCPCS: 15275; Q4133

== ENCOUNTER → 2020-01-03 | Outpatient (CLI) | payer OTHER | END | disposition home or self-care (01) | LOC: WOUND 09:33 | PROVIDERS: ATTEND Nurse Practitioner Family | DX: T81.89XD Other complications of procedures, not elsewhere classified, subsequent encounter (principal); E11.621 Type 2 diabetes mellitus with foot ulcer; L97.521 Non-pressure chronic ulcer of other part of left foot limited to breakdown of skin; L97.511 Non-pressure chronic ulcer of other part of right foot limited to breakdown of skin; E11.42 Type 2 diabetes mellitus with diabetic polyneuropathy; D50.8 Other iron deficiency anemias; E11.69 Type 2 diabetes mellitus with other specified complication; M86.072 Acute hematogenous osteomyelitis, left ankle and foot; M86.271 Subacute osteomyelitis, right ankle and foot; F32.9 Major depressive disorder, single episode, unspecified; L84 Corns and callosities; D63.8 Anemia in other chronic diseases classified elsewhere; E03.9 Hypothyroidism, unspecified; G47.33 Obstructive sleep apnea (adult) (pediatric); N25.81 Secondary hyperparathyroidism of renal origin; E83.52 Hypercalcemia; Z86.14 Personal history of Methicillin resistant Staphylococcus aureus infection; Z79.899 Other long term (current) drug therapy; Y83.8 Other surgical procedures as the cause of abnormal reaction of the patient, or of later complication, without mention of misadventure at the time of the procedure | CPT/HCPCS: 99215 ==

== ENCOUNTER → 2020-01-17 | Outpatient (CLI) | payer OTHER | END | disposition home or self-care (01) | LOC: WOUND 08:28 | PROVIDERS: ATTEND Nurse Practitioner Family | DX: T81.89XD Other complications of procedures, not elsewhere classified, subsequent encounter (principal); E11.621 Type 2 diabetes mellitus with foot ulcer; L97.511 Non-pressure chronic ulcer of other part of right foot limited to breakdown of skin; E11.42 Type 2 diabetes mellitus with diabetic polyneuropathy; D50.8 Other iron deficiency anemias; E11.69 Type 2 diabetes mellitus with other specified complication; M86.072 Acute hematogenous osteomyelitis, left ankle and foot; M86.271 Subacute osteomyelitis, right ankle and foot; F32.9 Major depressive disorder, single episode, unspecified; L84 Corns and callosities; D63.8 Anemia in other chronic diseases classified elsewhere; E03.9 Hypothyroidism, unspecified; G47.33 Obstructive sleep apnea (adult) (pediatric); N25.81 Secondary hyperparathyroidism of renal origin; E83.52 Hypercalcemia; Z86.14 Personal history of Methicillin resistant Staphylococcus aureus infection; Z79.899 Other long term (current) drug therapy; Y83.8 Other surgical procedures as the cause of abnormal reaction of the patient, or of later complication, without mention of misadventure at the time of the procedure | CPT/HCPCS: 97597; 99214 ==

== ENCOUNTER → 2020-08-30 | Outpatient (CLI) | payer OTHER ==
[~2020-08-30] MED LIST changes: +AMLO-211 PO; -AMLO10TA8 PO; -CLIN300C8 PO; +CLIN300C9 PO; -VENL25TA PO; +VENL25TA33 PO
== END | disposition home or self-care (01) ==
LOC: WOUND 12:42
PROVIDERS: ATTEND Podiatrist Foot & Ankle Surgery
DX: E11.621 Type 2 diabetes mellitus with foot ulcer (principal); L97.511 Non-pressure chronic ulcer of other part of right foot limited to breakdown of skin; E11.42 Type 2 diabetes mellitus with diabetic polyneuropathy; E11.69 Type 2 diabetes mellitus with other specified complication; M86.171 Other acute osteomyelitis, right ankle and foot; M86.072 Acute hematogenous osteomyelitis, left ankle and foot; L84 Corns and callosities; E21.3 Hyperparathyroidism, unspecified; D63.8 Anemia in other chronic diseases classified elsewhere; E03.9 Hypothyroidism, unspecified; N40.0 Benign prostatic hyperplasia without lower urinary tract symptoms; G47.33 Obstructive sleep apnea (adult) (pediatric); F32.9 Major depressive disorder, single episode, unspecified; Z86.14 Personal history of Methicillin resistant Staphylococcus aureus infection; Z79.84 Long term (current) use of oral hypoglycemic drugs; Z79.899 Other long term (current) drug therapy
CPT/HCPCS: 97597; 99214

== ENCOUNTER 2020-09-06 12:38 | Outpatient (CLI) | payer OTHER | END 2020-09-06 23:59 | disposition home or self-care (01) | LOC: WOUND 12:38 | PROVIDERS: ATTEND Podiatrist Foot & Ankle Surgery | DX: E11.621 Type 2 diabetes mellitus with foot ulcer (principal); L97.528 Non-pressure chronic ulcer of other part of left foot with other specified severity; E11.42 Type 2 diabetes mellitus with diabetic polyneuropathy; E11.69 Type 2 diabetes mellitus with other specified complication; M86.171 Other acute osteomyelitis, right ankle and foot; M86.072 Acute hematogenous osteomyelitis, left ankle and foot; L84 Corns and callosities; E21.3 Hyperparathyroidism, unspecified; D63.8 Anemia in other chronic diseases classified elsewhere; E03.9 Hypothyroidism, unspecified; N40.0 Benign prostatic hyperplasia without lower urinary tract symptoms; G47.33 Obstructive sleep apnea (adult) (pediatric); F32.9 Major depressive disorder, single episode, unspecified; Z86.14 Personal history of Methicillin resistant Staphylococcus aureus infection; Z79.84 Long term (current) use of oral hypoglycemic drugs; Z79.899 Other long term (current) drug therapy | CPT/HCPCS: 99213 ==

== ENCOUNTER → 2020-11-01 | Outpatient (CLI) | payer OTHER ==
[2020-11-01 09:40] LABS: BASOPHILS % (AUTO) 2 % (0-1); EOSINOPHILS % (AUTO) 9 % (1-7); LYMPHOCYTES % (AUTO) 38 % (22-44); MEAN CORPUSCULAR HEMOGLOBIN 28.1 pg (27.5-34.5); MEAN CORPUSCULAR HGB CONC 33.5 g/dL (33.2-36.2); MEAN PLATELET VOLUME 6.5 fL (7.4-10.4); MONOCYTES % (AUTO) 7 % (2-9); NEUTROPHILS % (AUTO) 45 % (42-75); PLATELET COUNT 265 x10^3/uL (130-400); RED BLOOD COUNT 4.77 x10^6/uL (4.38-5.82)
[2020-11-01 09:44] LABS: MD NO
[2020-11-01 09:49] LABS: ANION GAP 4 mmol/L (5-15); CALCIUM 11.4 mg/dL (8.5-10.1); CHLORIDE 108 mmol/L (98-107); CHOLESTEROL, TOTAL 225 mg/dL (140-239); TRIGLYCERIDES 252 mg/dL (50-200); VLDL CHOLESTEROL 50 mg/dL (0-25)
[2020-11-01 10:15] LABS: % IRON SATURATION 32 % (20-55); ALANINE AMINOTRANSFERASE 29 U/L (12-78); ALKALINE PHOSPHATASE 152 U/L (45-117); BILIRUBIN,TOTAL 0.4 mg/dL (0.2-1.0); CHOL/HDL RATIO 4.6; CREATININE 1.28 mg/dL (0.7-1.3); HDL CHOL % 22 % (26-37); HDL CHOLESTEROL (DIRECT) 49 mg/dL (40-60); IRON LEVEL 123 mcg/dL (65-175); LDL CHOLESTEROL,CALCULATED 126 mg/dL (54-169); LDL/HDL RATIO 2.6 (0.5-3.0); TOTAL IRON BINDING CAPACITY 389 mcg/dL (250-450); TOTAL PROTEIN 7.6 g/dL (6.4-8.2)
== END | disposition home or self-care (01) ==
LOC: LAB 09:21
PROVIDERS: ATTEND Internal Medicine
DX: E78.2 Mixed hyperlipidemia (principal); E11.40 Type 2 diabetes mellitus with diabetic neuropathy, unspecified; D50.9 Iron deficiency anemia, unspecified; E03.9 Hypothyroidism, unspecified; E21.0 Primary hyperparathyroidism; D63.8 Anemia in other chronic diseases classified elsewhere; G47.33 Obstructive sleep apnea (adult) (pediatric); G60.9 Hereditary and idiopathic neuropathy, unspecified
CPT/HCPCS: 36415; 80053; 80061; 82306; 82607; 83036; 83540; 83550; 83970; 84100; 84402; 84403; 84443; 85025